=== PATIENT | female | born 1930 | race Caucasian/White ===

== ENCOUNTER 2016-06-05 17:35 | Inpatient (IN) | payer MEDICARE, BC ==
[~2016-06-05] VITALS: Ht 165.1 cm; Wt 83.3 kg
[~2016-06-05 17:35] MED LIST: LIDOCAINE 2% SYR 5 ML IV ONE; PROPOFOL 50ML PER ML IV ONE
[2016-06-05] MEDS ORDERED: ONDANSETRON 4 MG VIAL IV PRN (18:15)
[2016-06-05] MEDS ORDERED: ALU/MAG/SIM 30 ML UDC PO PRN (18:15)
[2016-06-05] MEDS ORDERED: MAG HYDROX 30 ML UDC PO PRN (18:15)
[2016-06-05] MEDS ORDERED: DEXTROSE 50% SYRINGE 50 ML IV PRN (18:20)
[2016-06-05] MEDS ORDERED: GLUCAGON 1 MG VIAL IM PRN (18:20)
[2016-06-05 18:28] VITALS: BP_SYST 134; BP_SYST 140; RESP 24; TEMP 99.3; Ht 165.1 cm; Wt 83.3 kg
[2016-06-05 19:17] VITALS: BP_SYST 146; RESP 20; TEMP 98.3
[2016-06-05] MEDS: LISINOPRIL 2.5 MG TAB PO SCH (19:25)
[2016-06-05] MEDS: CLOPIDOGREL 75 MG TAB PO SCH (19:25)
[2016-06-05] MEDS: Furosemide 40 MG TAB PO SCH (19:25)
[2016-06-05] MEDS: glipiZIDE 10 MG TAB PO SCH (19:26)
[2016-06-05] MEDS: METOPROLOL XL 50 MG TAB PO SCH (19:26)
[2016-06-05] MEDS: METHYLPRED SOD SUCC 40 MG VIAL IV SCH (19:27)
[2016-06-05] MEDS: CEFTRIAXONE 1 GM in SODIUM CHLORIDE 0.9% 50 ML IV SCH (19:57)
[2016-06-05] MEDS: AZITHROMYCIN 500 MG in SODIUM CHLORIDE 0.9% 250 ML IV SCH (19:58)
[2016-06-05] MEDS: LEVEMIR INSULIN SUBQ SCH (20:08)
[2016-06-05] MEDS: CARBAMIDE PEROXIDE 6.5% EAR EACH SCH (21:19)
[2016-06-05] MEDS: GABAPENTIN 300 MG CAP PO SCH (21:19)
[2016-06-05] MEDS: LORAZEPAM 0.5 MG TAB PO PRN (22:07)
[2016-06-05] MEDS: NEB-XOPENEX 0.63 MG/3 ML INH SCH (22:25)
[2016-06-05] MEDS: NEB-BROVANA 15 MCG/2 ML INH SCH (22:25)
[2016-06-05] MEDS: NEB-BUDESONIDE 0.5 MG INH SCH (22:25)
[2016-06-05 22:30] VITALS: RESP 18
[2016-06-05 22:51] VITALS: BP_SYST 149; RESP 22; TEMP 99.7
[2016-06-06] MEDS: NEB-XOPENEX 0.63 MG/3 ML INH SCH ×5 (00:30→23:35)
[2016-06-06] MEDS: NEB-BROVANA 15 MCG/2 ML INH SCH ×2 (05:38→19:00)
[2016-06-06] MEDS: NEB-BUDESONIDE 0.5 MG INH SCH ×2 (05:38→19:33)
[2016-06-06] MEDS: PANTOPRAZOLE 40 MG TAB PO SCH (06:05)
[2016-06-06 07:10] VITALS: BP_SYST 115; RESP 20; TEMP 98.2
[2016-06-06] MEDS: METHYLPRED SOD SUCC 40 MG VIAL IV SCH ×2 (08:12→20:35)
[2016-06-06] MEDS: LEVEMIR INSULIN SUBQ SCH ×2 (08:31→21:51)
[2016-06-06] MEDS: GABAPENTIN 300 MG CAP PO SCH ×3 (08:32→21:18)
[2016-06-06] MEDS: glipiZIDE 10 MG TAB PO SCH (08:32)
[2016-06-06] MEDS: LISINOPRIL 2.5 MG TAB PO SCH (08:32)
[2016-06-06] MEDS: CLOPIDOGREL 75 MG TAB PO SCH (08:32)
[2016-06-06] MEDS: METOPROLOL XL 50 MG TAB PO SCH (08:32)
[2016-06-06] MEDS: Furosemide 40 MG TAB PO SCH (08:32)
[2016-06-06] MEDS: CARBAMIDE PEROXIDE 6.5% EAR EACH SCH ×2 (08:33→21:31)
[2016-06-06] MEDS: CEFTRIAXONE 1 GM in SODIUM CHLORIDE 0.9% 50 ML IV SCH (10:50)
[2016-06-06 11:07] VITALS: BP_SYST 113; RESP 20; TEMP 97.9
[2016-06-06] MEDS: AZITHROMYCIN 500 MG in SODIUM CHLORIDE 0.9% 250 ML IV SCH (11:37)
[2016-06-06] MEDS: ACETAMINOPHEN 325 MG TAB PO PRN ×2 (12:06→21:22)
[2016-06-06] MEDS: GUAIFEN/DM 10 ML UDC PO PRN ×2 (12:28→23:10)
[2016-06-06] MEDS: IRON SUCROSE COMPLEX 400 MG in SODIUM CHLORIDE 0.9% 250 ML IV SCH (13:32)
[2016-06-06 15:14] VITALS: BP_SYST 125; RESP 20; TEMP 98.4
[2016-06-06 19:34] VITALS: BP_SYST 160; RESP 16; TEMP 98.1
[2016-06-06] MEDS: LORAZEPAM 0.5 MG TAB PO PRN (21:50)
[2016-06-06] MEDS ORDERED: MISSING DOSE XX ONE (22:30)
[2016-06-07] VITALS (7 sets, daily range): BP systolic 118–179; RESP 16–20; TEMP 97.6–98.2
[2016-06-07] MEDS: GUAIFEN/DM 10 ML UDC PO PRN (05:34)
[2016-06-07] MEDS: PANTOPRAZOLE 40 MG TAB PO SCH (05:34)
[2016-06-07] MEDS: NEB-XOPENEX 0.63 MG/3 ML INH SCH ×4 (06:46→23:41)
[2016-06-07] MEDS: NEB-BROVANA 15 MCG/2 ML INH SCH ×2 (06:46→18:57)
[2016-06-07] MEDS: NEB-BUDESONIDE 0.5 MG INH SCH (06:50)
[2016-06-07] MEDS: METHYLPRED SOD SUCC 40 MG VIAL IV SCH ×2 (07:35→20:57)
[2016-06-07] MEDS: ACETAMINOPHEN 325 MG TAB PO PRN (07:37)
[2016-06-07] MEDS: CEFTRIAXONE 1 GM in SODIUM CHLORIDE 0.9% 50 ML IV SCH (08:06)
[2016-06-07] MEDS: LEVEMIR INSULIN SUBQ SCH ×2 (08:08→21:29)
[2016-06-07] MEDS: CARBAMIDE PEROXIDE 6.5% EAR EACH SCH ×2 (08:08→20:57)
[2016-06-07] MEDS: LISINOPRIL 2.5 MG TAB PO SCH (08:09)
[2016-06-07] MEDS: GABAPENTIN 300 MG CAP PO SCH ×3 (08:09→21:28)
[2016-06-07] MEDS: glipiZIDE 10 MG TAB PO SCH (08:09)
[2016-06-07] MEDS: Furosemide 40 MG TAB PO SCH (08:10)
[2016-06-07] MEDS: METOPROLOL XL 50 MG TAB PO SCH (08:10)
[2016-06-07] MEDS: CLOPIDOGREL 75 MG TAB PO SCH (08:10)
[2016-06-07] MEDS: AZITHROMYCIN 500 MG in SODIUM CHLORIDE 0.9% 250 ML IV SCH (08:41)
[2016-06-07] MEDS: IRON SUCROSE COMPLEX 400 MG in SODIUM CHLORIDE 0.9% 250 ML IV SCH (09:56)
[2016-06-07] MEDS: PSEUDOEPHEDRINE 30 MG PO SCH ×3 (14:42→21:00)
[2016-06-07] MEDS: OLOPATADINE 0.1% OP SOLN EYE EACH SCH ×2 (15:47→21:28)
[2016-06-07] MEDS: DIPHENHYDRAMINE 25 MG CAP PO SCH (21:28)
[2016-06-08 03:58] VITALS: BP_SYST 144; RESP 20; TEMP 98
[2016-06-08] MEDS: PANTOPRAZOLE 40 MG TAB PO SCH (07:01)
[2016-06-08] MEDS: NEB-XOPENEX 0.63 MG/3 ML INH SCH ×3 (07:04→19:47)
[2016-06-08] MEDS: NEB-BUDESONIDE 0.5 MG INH SCH ×3 (07:04→19:50)
[2016-06-08] MEDS: NEB-BROVANA 15 MCG/2 ML INH SCH ×2 (07:04→19:47)
[2016-06-08 07:23] VITALS: BP_SYST 172; RESP 20; TEMP 97.5
[2016-06-08] MEDS: CARBAMIDE PEROXIDE 6.5% EAR EACH SCH ×2 (09:04→20:43)
[2016-06-08] MEDS: METHYLPRED SOD SUCC 40 MG VIAL IV SCH ×2 (09:04→20:42)
[2016-06-08] MEDS: PSEUDOEPHEDRINE 30 MG PO SCH ×4 (09:05→20:31)
[2016-06-08] MEDS: GABAPENTIN 300 MG CAP PO SCH ×3 (09:05→20:43)
[2016-06-08] MEDS: LEVEMIR INSULIN SUBQ SCH ×2 (09:05→21:10)
[2016-06-08] MEDS: Furosemide 40 MG TAB PO SCH (09:05)
[2016-06-08] MEDS: OLOPATADINE 0.1% OP SOLN EYE EACH SCH ×2 (09:05→20:43)
[2016-06-08] MEDS: CLOPIDOGREL 75 MG TAB PO SCH (09:05)
[2016-06-08] MEDS: METOPROLOL XL 50 MG TAB PO SCH (09:06)
[2016-06-08] MEDS: glipiZIDE 10 MG TAB PO SCH (09:06)
[2016-06-08] MEDS: LISINOPRIL 2.5 MG TAB PO SCH (09:06)
[2016-06-08] MEDS: ACETAMINOPHEN 325 MG TAB PO PRN (09:07)
[2016-06-08] MEDS: CEFTRIAXONE 1 GM in SODIUM CHLORIDE 0.9% 50 ML IV SCH (09:11)
[2016-06-08] MEDS: AZITHROMYCIN 500 MG in SODIUM CHLORIDE 0.9% 250 ML IV SCH (11:00)
[2016-06-08 11:25] VITALS: BP_SYST 144; RESP 20; TEMP 98
[2016-06-08] MEDS: IRON SUCROSE COMPLEX 400 MG in SODIUM CHLORIDE 0.9% 250 ML IV SCH (12:16)
[2016-06-08] MEDS: THEOPHYLLINE ER 300 MG TAB PO SCH (15:28)
[2016-06-08 16:28] VITALS: BP_SYST 138; RESP 18; TEMP 98.5
[2016-06-08 19:20] VITALS: BP_SYST 139; RESP 20; TEMP 98.1
[2016-06-08] MEDS: DIPHENHYDRAMINE 25 MG CAP PO SCH (20:43)
[2016-06-08] MEDS: LORAZEPAM 0.5 MG TAB PO PRN (21:09)
[2016-06-08 22:54] VITALS: BP_SYST 158; RESP 18; TEMP 98.1
[2016-06-09] MEDS: NEB-XOPENEX 0.63 MG/3 ML INH SCH ×4 (00:29→19:42)
[2016-06-09] MEDS: ACETAMINOPHEN 325 MG TAB PO PRN ×2 (06:40→12:41)
[2016-06-09] MEDS: PANTOPRAZOLE 40 MG TAB PO SCH (06:41)
[2016-06-09 07:15] VITALS: BP_SYST 155; RESP 20; TEMP 98.1
[2016-06-09] MEDS: NEB-BROVANA 15 MCG/2 ML INH SCH ×2 (07:19→19:43)
[2016-06-09] MEDS: NEB-BUDESONIDE 0.5 MG INH SCH (07:19)
[2016-06-09] MEDS: METOPROLOL XL 50 MG TAB PO SCH (08:29)
[2016-06-09] MEDS: Furosemide 40 MG TAB PO SCH (08:29)
[2016-06-09] MEDS: CEFTRIAXONE 1 GM in SODIUM CHLORIDE 0.9% 50 ML IV SCH (08:29)
[2016-06-09] MEDS: THEOPHYLLINE ER 300 MG TAB PO SCH (08:29)
[2016-06-09] MEDS: CLOPIDOGREL 75 MG TAB PO SCH (08:29)
[2016-06-09] MEDS: PSEUDOEPHEDRINE 30 MG PO SCH ×4 (08:29→21:00)
[2016-06-09] MEDS: glipiZIDE 10 MG TAB PO SCH (08:30)
[2016-06-09] MEDS: OLOPATADINE 0.1% OP SOLN EYE EACH SCH ×2 (08:30→21:04)
[2016-06-09] MEDS: METHYLPRED SOD SUCC 40 MG VIAL IV SCH ×2 (08:30→20:59)
[2016-06-09] MEDS: GABAPENTIN 300 MG CAP PO SCH ×3 (08:30→21:05)
[2016-06-09] MEDS: LISINOPRIL 2.5 MG TAB PO SCH (08:30)
[2016-06-09] MEDS: CARBAMIDE PEROXIDE 6.5% EAR EACH SCH ×2 (08:30→21:00)
[2016-06-09] MEDS: LEVEMIR INSULIN SUBQ SCH ×2 (08:52→21:47)
[2016-06-09 11:28] VITALS: BP_SYST 151; RESP 20; TEMP 98.6
[2016-06-09 15:07] VITALS: BP_SYST 153; RESP 20; TEMP 98.1
[2016-06-09] MEDS: AZITHROMYCIN 250 MG in SODIUM CHLORIDE 0.9% 250 ML IV SCH (18:13)
[2016-06-09 20:54] VITALS: BP_SYST 173; RESP 18; TEMP 98.5
[2016-06-09] MEDS: LORAZEPAM 0.5 MG TAB PO PRN (21:01)
[2016-06-09] MEDS: DIPHENHYDRAMINE 25 MG CAP PO SCH (21:04)
[2016-06-09] MEDS: ZOLPIDEM 5 MG TAB PO PRN (21:47)
[2016-06-09 22:43] VITALS: BP_SYST 184; RESP 18; TEMP 97.9
[2016-06-10] MEDS: NEB-XOPENEX 0.63 MG/3 ML INH SCH ×5 (00:14→22:34)
[2016-06-10] MEDS: PANTOPRAZOLE 40 MG TAB PO SCH (06:08)
[2016-06-10 06:18] VITALS: BP_SYST 150; RESP 18; TEMP 97.7
[2016-06-10] MEDS ORDERED: SALINE FLUSH 10 ML FLUSH PRN (06:25)
[2016-06-10 07:21] VITALS: BP_SYST 149; RESP 20; TEMP 98.2
[2016-06-10] MEDS: NEB-BUDESONIDE 0.5 MG INH SCH (07:28)
[2016-06-10] MEDS: NEB-BROVANA 15 MCG/2 ML INH SCH ×2 (07:28→18:30)
[2016-06-10] MEDS: METHYLPRED SOD SUCC 40 MG VIAL IV SCH ×2 (08:57→21:32)
[2016-06-10] MEDS: SALINE FLUSH 10 ML FLUSH SCH ×2 (08:57→21:32)
[2016-06-10] MEDS: LISINOPRIL 2.5 MG TAB PO SCH (08:58)
[2016-06-10] MEDS: AZITHROMYCIN 250 MG in SODIUM CHLORIDE 0.9% 250 ML IV SCH (08:58)
[2016-06-10] MEDS: METOPROLOL XL 50 MG TAB PO SCH (08:58)
[2016-06-10] MEDS: CARBAMIDE PEROXIDE 6.5% EAR EACH SCH ×2 (08:58→21:00)
[2016-06-10] MEDS: OLOPATADINE 0.1% OP SOLN EYE EACH SCH ×2 (08:58→19:44)
[2016-06-10] MEDS: PSEUDOEPHEDRINE 30 MG PO SCH ×4 (08:59→21:00)
[2016-06-10] MEDS: CLOPIDOGREL 75 MG TAB PO SCH (08:59)
[2016-06-10] MEDS: THEOPHYLLINE ER 300 MG TAB PO SCH (08:59)
[2016-06-10] MEDS: glipiZIDE 10 MG TAB PO SCH (09:00)
[2016-06-10] MEDS: GABAPENTIN 300 MG CAP PO SCH ×3 (09:01→21:33)
[2016-06-10] MEDS: Furosemide 40 MG TAB PO SCH (09:01)
[2016-06-10] MEDS: LEVEMIR INSULIN SUBQ SCH ×2 (09:01→22:15)
[2016-06-10] MEDS: ACETAMINOPHEN 325 MG TAB PO PRN (11:04)
[2016-06-10 11:27] VITALS: BP_SYST 117; RESP 20; TEMP 98.3
[2016-06-10 15:14] VITALS: BP_SYST 130; RESP 20; TEMP 98.4
[2016-06-10 19:08] VITALS: BP_SYST 115; RESP 18; TEMP 98.4
[2016-06-10] MEDS: LORAZEPAM 0.5 MG TAB PO PRN (19:43)
[2016-06-10] MEDS: DIPHENHYDRAMINE 25 MG CAP PO SCH (21:32)
[2016-06-10] MEDS: ZOLPIDEM 5 MG TAB PO PRN (21:32)
[2016-06-10 22:34] VITALS: BP_SYST 138; RESP 18; TEMP 98.6
[2016-06-11] MEDS: PANTOPRAZOLE 40 MG TAB PO SCH (06:30)
[2016-06-11] MEDS: SODIUM CHLORIDE 0.9% FLUSH BAG 500 ML IV SCH (06:30)
[2016-06-11 07:16] VITALS: BP_SYST 145; RESP 18; TEMP 98.1
[2016-06-11] MEDS: NEB-BROVANA 15 MCG/2 ML INH SCH ×2 (07:27→18:36)
[2016-06-11] MEDS: NEB-XOPENEX 0.63 MG/3 ML INH SCH ×5 (07:27→23:52)
[2016-06-11] MEDS: NEB-BUDESONIDE 0.5 MG INH SCH ×2 (07:27→18:36)
[2016-06-11] MEDS: SALINE FLUSH 10 ML FLUSH SCH ×2 (08:51→20:33)
[2016-06-11] MEDS: METHYLPRED SOD SUCC 40 MG VIAL IV SCH ×2 (08:51→20:33)
[2016-06-11] MEDS: LEVEMIR INSULIN SUBQ SCH ×2 (08:52→20:35)
[2016-06-11] MEDS: Furosemide 40 MG TAB PO SCH (08:52)
[2016-06-11] MEDS: PSEUDOEPHEDRINE 30 MG PO SCH ×4 (08:53→20:34)
[2016-06-11] MEDS: THEOPHYLLINE ER 300 MG TAB PO SCH (08:53)
[2016-06-11] MEDS: LISINOPRIL 2.5 MG TAB PO SCH (08:53)
[2016-06-11] MEDS: METOPROLOL XL 50 MG TAB PO SCH (08:53)
[2016-06-11] MEDS: GABAPENTIN 300 MG CAP PO SCH ×3 (08:53→20:34)
[2016-06-11] MEDS: OLOPATADINE 0.1% OP SOLN EYE EACH SCH ×2 (08:54→20:34)
[2016-06-11] MEDS: CARBAMIDE PEROXIDE 6.5% EAR EACH SCH ×2 (08:55→20:33)
[2016-06-11] MEDS: AZITHROMYCIN 250 MG in SODIUM CHLORIDE 0.9% 250 ML IV SCH (09:42)
[2016-06-11] MEDS: glipiZIDE 10 MG TAB PO SCH (10:48)
[2016-06-11 12:10] VITALS: BP_SYST 149; RESP 18; TEMP 97.7
[2016-06-11] MEDS: ACETAMINOPHEN 325 MG TAB PO PRN (12:24)
[2016-06-11 15:28] VITALS: BP_SYST 116; RESP 18; TEMP 98.3
[2016-06-11 19:02] VITALS: BP_SYST 139; RESP 20; TEMP 98.1
[2016-06-11] MEDS: DIPHENHYDRAMINE 25 MG CAP PO SCH (20:34)
[2016-06-11] MEDS: LORAZEPAM 0.5 MG TAB PO PRN (21:40)
[2016-06-11 23:16] VITALS: BP_SYST 138; RESP 20; TEMP 98.1
[2016-06-12] MEDS: ACETAMINOPHEN 325 MG TAB PO PRN ×3 (00:01→23:35)
[2016-06-12 04:29] VITALS: BP_SYST 166; RESP 18; TEMP 97.9
[2016-06-12] MEDS: PANTOPRAZOLE 40 MG TAB PO SCH (06:30)
[2016-06-12] MEDS: SODIUM CHLORIDE 0.9% FLUSH BAG 500 ML IV SCH (06:30)
[2016-06-12 07:20] VITALS: BP_SYST 135; RESP 18; TEMP 97.6
[2016-06-12] MEDS: NEB-BROVANA 15 MCG/2 ML INH SCH ×2 (07:29→17:12)
[2016-06-12] MEDS: NEB-XOPENEX 0.63 MG/3 ML INH SCH ×4 (07:29→23:50)
[2016-06-12] MEDS: NEB-BUDESONIDE 0.5 MG INH SCH (07:30)
[2016-06-12] MEDS ORDERED: MISSING DOSE XX ONE (09:45)
[2016-06-12] MEDS: CARBAMIDE PEROXIDE 6.5% EAR EACH SCH ×2 (10:31→20:03)
[2016-06-12] MEDS: SALINE FLUSH 10 ML FLUSH SCH ×2 (10:31→20:03)
[2016-06-12] MEDS: METHYLPRED SOD SUCC 40 MG VIAL IV SCH ×3 (10:31→20:03)
[2016-06-12] MEDS: OLOPATADINE 0.1% OP SOLN EYE EACH SCH ×2 (10:32→20:03)
[2016-06-12] MEDS: GUAIFEN/DM 10 ML UDC PO PRN (10:32)
[2016-06-12] MEDS: AZITHROMYCIN 250 MG in SODIUM CHLORIDE 0.9% 250 ML IV SCH (10:32)
[2016-06-12] MEDS: GABAPENTIN 300 MG CAP PO SCH ×3 (10:33→20:03)
[2016-06-12] MEDS: PSEUDOEPHEDRINE 30 MG PO SCH ×4 (10:33→20:03)
[2016-06-12] MEDS: LEVEMIR INSULIN SUBQ SCH ×2 (10:33→20:04)
[2016-06-12] MEDS: THEOPHYLLINE ER 300 MG TAB PO SCH (10:34)
[2016-06-12] MEDS: glipiZIDE 10 MG TAB PO SCH (10:34)
[2016-06-12] MEDS: LISINOPRIL 2.5 MG TAB PO SCH (10:34)
[2016-06-12] MEDS: Furosemide 40 MG TAB PO SCH (10:34)
[2016-06-12] MEDS: METOPROLOL XL 50 MG TAB PO SCH (10:34)
[2016-06-12 11:25] VITALS: BP_SYST 143; RESP 18; TEMP 98.1
[2016-06-12 16:02] VITALS: BP_SYST 148; RESP 16; TEMP 97.8
[2016-06-12 19:51] VITALS: BP_SYST 131; RESP 18; TEMP 98.1
[2016-06-12] MEDS: DIPHENHYDRAMINE 25 MG CAP PO SCH (20:03)
[2016-06-12] MEDS: LORAZEPAM 0.5 MG TAB PO PRN (23:34)
[2016-06-12 23:36] VITALS: BP_SYST 105; RESP 20; TEMP 97.8
[2016-06-13 03:13] VITALS: BP_SYST 121; RESP 18; TEMP 97.5
[2016-06-13] MEDS: SODIUM CHLORIDE 0.9% FLUSH BAG 500 ML IV SCH (05:58)
[2016-06-13] MEDS: PANTOPRAZOLE 40 MG TAB PO SCH (06:06)
[2016-06-13] MEDS: NEB-BROVANA 15 MCG/2 ML INH SCH ×2 (06:31→18:47)
[2016-06-13] MEDS: NEB-XOPENEX 0.63 MG/3 ML INH SCH ×3 (06:31→18:46)
[2016-06-13] MEDS: NEB-BUDESONIDE 0.5 MG INH SCH (06:31)
[2016-06-13 07:52] VITALS: BP_SYST 137; RESP 16; TEMP 97.6
[2016-06-13] MEDS: OLOPATADINE 0.1% OP SOLN EYE EACH SCH ×2 (09:40→21:25)
[2016-06-13] MEDS: GUAIFEN/DM 10 ML UDC PO PRN (09:41)
[2016-06-13] MEDS: METHYLPRED SOD SUCC 40 MG VIAL IV SCH ×2 (09:41→21:25)
[2016-06-13] MEDS: CARBAMIDE PEROXIDE 6.5% EAR EACH SCH ×2 (09:41→21:26)
[2016-06-13] MEDS: SALINE FLUSH 10 ML FLUSH SCH ×2 (09:41→21:24)
[2016-06-13] MEDS: THEOPHYLLINE ER 300 MG TAB PO SCH (09:42)
[2016-06-13] MEDS: PSEUDOEPHEDRINE 30 MG PO SCH ×4 (09:42→21:26)
[2016-06-13] MEDS: glipiZIDE 10 MG TAB PO SCH (09:42)
[2016-06-13] MEDS: METOPROLOL XL 50 MG TAB PO SCH (09:42)
[2016-06-13] MEDS: Furosemide 40 MG TAB PO SCH (09:42)
[2016-06-13] MEDS: GABAPENTIN 300 MG CAP PO SCH ×3 (09:42→21:26)
[2016-06-13] MEDS: LISINOPRIL 2.5 MG TAB PO SCH (09:42)
[2016-06-13] MEDS: TRAMADOL 50 MG TAB PO PRN (09:55)
[2016-06-13] MEDS: LEVEMIR INSULIN SUBQ SCH ×2 (09:56→21:00)
[2016-06-13 11:36] VITALS: BP_SYST 134; RESP 16; TEMP 98
[2016-06-13 15:06] VITALS: BP_SYST 136; TEMP 97.9
[2016-06-13 19:18] VITALS: BP_SYST 138; RESP 18; TEMP 98.4
[2016-06-13] MEDS: DIPHENHYDRAMINE 25 MG CAP PO SCH (21:26)
[2016-06-13] MEDS: LORAZEPAM 0.5 MG TAB PO PRN (22:08)
[2016-06-13 23:11] VITALS: BP_SYST 129; RESP 20; TEMP 98.1
[2016-06-14] MEDS: NEB-XOPENEX 0.63 MG/3 ML INH SCH ×5 (00:08→23:31)
[2016-06-14] MEDS: NEB-BUDESONIDE 0.5 MG INH SCH (05:23)
[2016-06-14] MEDS: NEB-BROVANA 15 MCG/2 ML INH SCH ×2 (05:23→19:00)
[2016-06-14] MEDS: SODIUM CHLORIDE 0.9% FLUSH BAG 500 ML IV SCH (06:00)
[2016-06-14] MEDS: PANTOPRAZOLE 40 MG TAB PO SCH (07:42)
[2016-06-14 08:12] VITALS: BP_SYST 136; RESP 18; TEMP 97.7
[2016-06-14] MEDS: OLOPATADINE 0.1% OP SOLN EYE EACH SCH ×2 (08:34→21:06)
[2016-06-14] MEDS: CARBAMIDE PEROXIDE 6.5% EAR EACH SCH ×2 (08:35→21:00)
[2016-06-14] MEDS: GABAPENTIN 300 MG CAP PO SCH ×3 (08:36→21:05)
[2016-06-14] MEDS: METHYLPRED SOD SUCC 40 MG VIAL IV SCH ×2 (08:36→21:06)
[2016-06-14] MEDS: Furosemide 40 MG TAB PO SCH (08:36)
[2016-06-14] MEDS: SALINE FLUSH 10 ML FLUSH SCH ×2 (08:36→21:06)
[2016-06-14] MEDS: glipiZIDE 10 MG TAB PO SCH (08:36)
[2016-06-14] MEDS: LISINOPRIL 2.5 MG TAB PO SCH (08:36)
[2016-06-14] MEDS: THEOPHYLLINE ER 300 MG TAB PO SCH (08:37)
[2016-06-14] MEDS: PSEUDOEPHEDRINE 30 MG PO SCH ×4 (08:37→21:04)
[2016-06-14] MEDS: METOPROLOL XL 50 MG TAB PO SCH (08:37)
[2016-06-14] MEDS: LEVEMIR INSULIN SUBQ SCH ×2 (09:16→21:25)
[2016-06-14] MEDS: ACETAMINOPHEN 325 MG TAB PO PRN ×2 (12:56→21:13)
[2016-06-14 15:45] VITALS: BP_SYST 114; RESP 18; TEMP 98
[2016-06-14 19:33] VITALS: BP_SYST 141; RESP 18; TEMP 97.7
[2016-06-14] MEDS ORDERED: POLYETHYLENE GLYCOL 17 GM PACKET PO ONE (21:00)
[2016-06-14] MEDS: LORAZEPAM 0.5 MG TAB PO PRN (21:05)
[2016-06-14] MEDS: DIPHENHYDRAMINE 25 MG CAP PO SCH (21:05)
[2016-06-14] MEDS: ZOLPIDEM 5 MG TAB PO PRN (21:13)
[2016-06-14 23:41] VITALS: BP_SYST 119; RESP 18; TEMP 98.3
[2016-06-15 03:14] VITALS: BP_SYST 122; RESP 18; TEMP 98
[2016-06-15] MEDS: NEB-XOPENEX 0.63 MG/3 ML INH SCH ×4 (05:04→23:58)
[2016-06-15] MEDS: NEB-BROVANA 15 MCG/2 ML INH SCH ×2 (05:05→18:11)
[2016-06-15] MEDS: NEB-BUDESONIDE 0.5 MG INH SCH (05:06)
[2016-06-15] MEDS: PANTOPRAZOLE 40 MG TAB PO SCH (05:25)
[2016-06-15 07:37] VITALS: BP_SYST 131; RESP 18; TEMP 97.5
[2016-06-15] MEDS: THEOPHYLLINE ER 300 MG TAB PO SCH (09:00)
[2016-06-15] MEDS: Furosemide 40 MG TAB PO SCH (09:00)
[2016-06-15] MEDS: glipiZIDE 10 MG TAB PO SCH (09:00)
[2016-06-15] MEDS ORDERED: POLYETHYLENE GLYCOL 17 GM PACKET PO ONE (09:00)
[2016-06-15] MEDS: PSEUDOEPHEDRINE 30 MG PO SCH ×4 (09:00→20:54)
[2016-06-15] MEDS: METOPROLOL XL 50 MG TAB PO SCH (09:01)
[2016-06-15] MEDS: LISINOPRIL 2.5 MG TAB PO SCH (09:01)
[2016-06-15] MEDS: GABAPENTIN 300 MG CAP PO SCH ×3 (09:01→20:54)
[2016-06-15] MEDS: LEVEMIR INSULIN SUBQ SCH ×2 (09:02→20:55)
[2016-06-15] MEDS: CARBAMIDE PEROXIDE 6.5% EAR EACH SCH ×2 (09:02→20:54)
[2016-06-15] MEDS: OLOPATADINE 0.1% OP SOLN EYE EACH SCH ×2 (09:02→20:54)
[2016-06-15] MEDS: METHYLPRED SOD SUCC 40 MG VIAL IV SCH ×2 (09:02→20:54)
[2016-06-15] MEDS: SALINE FLUSH 10 ML FLUSH SCH ×2 (09:03→20:54)
[2016-06-15 10:43] VITALS: BP_SYST 138; RESP 16; TEMP 98
[2016-06-15 15:42] VITALS: BP_SYST 140; RESP 16; TEMP 97.8
[2016-06-15 20:25] VITALS: BP_SYST 178; RESP 18; TEMP 98.3
[2016-06-15] MEDS: DIPHENHYDRAMINE 25 MG CAP PO SCH (20:54)
[2016-06-15] MEDS: LORAZEPAM 0.5 MG TAB PO PRN (20:59)
[2016-06-15 23:28] VITALS: BP_SYST 135; RESP 18; TEMP 98.3
[2016-06-16] VITALS (10 sets, daily range): BP systolic 99–151; RESP 15–19; TEMP 95.6–98.7
[2016-06-16] MEDS: NEB-BUDESONIDE 0.5 MG INH SCH (05:12)
[2016-06-16] MEDS: NEB-BROVANA 15 MCG/2 ML INH SCH ×2 (05:12→17:10)
[2016-06-16] MEDS: NEB-XOPENEX 0.63 MG/3 ML INH SCH ×4 (05:12→23:36)
[2016-06-16] MEDS: PANTOPRAZOLE 40 MG TAB PO SCH (06:00)
[2016-06-16] MEDS: LEVEMIR INSULIN SUBQ SCH ×2 (08:19→21:00)
[2016-06-16] MEDS: GABAPENTIN 300 MG CAP PO SCH ×3 (09:00→21:03)
[2016-06-16] MEDS: CARBAMIDE PEROXIDE 6.5% EAR EACH SCH ×2 (09:24→21:02)
[2016-06-16] MEDS: OLOPATADINE 0.1% OP SOLN EYE EACH SCH ×2 (09:24→21:03)
[2016-06-16] MEDS: SALINE FLUSH 10 ML FLUSH SCH ×2 (09:25→21:02)
[2016-06-16] MEDS: METHYLPRED SOD SUCC 40 MG VIAL IV SCH ×2 (09:25→21:02)
[2016-06-16] MEDS: PSEUDOEPHEDRINE 30 MG PO SCH ×4 (13:00→21:03)
[2016-06-16] MEDS: Furosemide 40 MG TAB PO SCH (14:49)
[2016-06-16] MEDS: glipiZIDE 10 MG TAB PO SCH (14:49)
[2016-06-16] MEDS: METOPROLOL XL 50 MG TAB PO SCH (14:49)
[2016-06-16] MEDS: LISINOPRIL 2.5 MG TAB PO SCH (14:49)
[2016-06-16] MEDS: THEOPHYLLINE ER 300 MG TAB PO SCH (14:50)
[2016-06-16] MEDS: DIPHENHYDRAMINE 25 MG CAP PO SCH (21:00)
[2016-06-16] MEDS: LORAZEPAM 0.5 MG TAB PO PRN (21:03)
[2016-06-17] VITALS (7 sets, daily range): BP systolic 91–161; RESP 16–22; TEMP 98–99
[2016-06-17] MEDS: TRAMADOL 50 MG TAB PO PRN (03:37)
[2016-06-17] MEDS: NEB-XOPENEX 0.63 MG/3 ML INH SCH ×4 (05:15→22:56)
[2016-06-17] MEDS: NEB-BROVANA 15 MCG/2 ML INH SCH ×2 (05:15→19:00)
[2016-06-17] MEDS: NEB-BUDESONIDE 0.5 MG INH SCH (05:15)
[2016-06-17] MEDS: PANTOPRAZOLE 40 MG TAB PO SCH (06:38)
[2016-06-17] MEDS: METHYLPRED SOD SUCC 40 MG VIAL IV SCH ×2 (08:00→22:09)
[2016-06-17] MEDS: CARBAMIDE PEROXIDE 6.5% EAR EACH SCH ×3 (09:12→22:08)
[2016-06-17] MEDS: OLOPATADINE 0.1% OP SOLN EYE EACH SCH ×2 (09:12→22:05)
[2016-06-17] MEDS: glipiZIDE 10 MG TAB PO SCH (09:12)
[2016-06-17] MEDS: PSEUDOEPHEDRINE 30 MG PO SCH ×2 (09:12→13:00)
[2016-06-17] MEDS: METOPROLOL XL 50 MG TAB PO SCH (09:13)
[2016-06-17] MEDS: THEOPHYLLINE ER 300 MG TAB PO SCH (09:13)
[2016-06-17] MEDS: LISINOPRIL 2.5 MG TAB PO SCH (09:13)
[2016-06-17] MEDS: GABAPENTIN 300 MG CAP PO SCH ×3 (09:13→22:01)
[2016-06-17] MEDS: LEVEMIR INSULIN SUBQ SCH ×2 (09:14→22:29)
[2016-06-17] MEDS: Furosemide 40 MG TAB PO SCH (09:14)
[2016-06-17] MEDS: SALINE FLUSH 10 ML FLUSH SCH ×2 (09:16→22:09)
[2016-06-17] MEDS ORDERED: CLOPIDOGREL 75 MG TAB PO SCH (13:05)
[2016-06-17] MEDS: ASPIRIN EC 81 MG TAB PO SCH (15:06)
[2016-06-17] MEDS: CLOPIDOGREL 75 MG TAB PO SCH (16:55)
[2016-06-17] MEDS: SIMETHICONE 80 MG CHEW TAB PO SCH ×2 (17:23→22:01)
[2016-06-17] MEDS: DIPHENHYDRAMINE 25 MG CAP PO SCH (22:01)
[2016-06-18 04:45] VITALS: BP_SYST 114; RESP 20; TEMP 97.4
[2016-06-18] MEDS: NEB-XOPENEX 0.63 MG/3 ML INH SCH ×4 (06:30→23:32)
[2016-06-18] MEDS: NEB-BUDESONIDE 0.5 MG INH SCH (07:00)
[2016-06-18] MEDS ORDERED: MISSING DOSE XX ONE ×5 (07:00→09:30)
[2016-06-18] MEDS: NEB-BROVANA 15 MCG/2 ML INH SCH ×2 (07:00→19:24)
[2016-06-18 07:31] VITALS: BP_SYST 107; RESP 20; TEMP 97.7
[2016-06-18] MEDS: PANTOPRAZOLE 40 MG TAB PO SCH (07:32)
[2016-06-18] MEDS: ASPIRIN EC 81 MG TAB PO SCH (09:00)
[2016-06-18] MEDS: CARBAMIDE PEROXIDE 6.5% EAR EACH SCH ×2 (10:41→21:24)
[2016-06-18] MEDS: METHYLPRED SOD SUCC 40 MG VIAL IV SCH ×2 (10:41→21:23)
[2016-06-18] MEDS: SALINE FLUSH 10 ML FLUSH SCH ×2 (10:41→21:23)
[2016-06-18] MEDS: glipiZIDE 10 MG TAB PO SCH (10:42)
[2016-06-18] MEDS: OLOPATADINE 0.1% OP SOLN EYE EACH SCH ×2 (10:42→21:24)
[2016-06-18] MEDS: METOPROLOL XL 50 MG TAB PO SCH (10:42)
[2016-06-18] MEDS: Furosemide 40 MG TAB PO SCH (10:43)
[2016-06-18] MEDS: LISINOPRIL 2.5 MG TAB PO SCH (10:43)
[2016-06-18] MEDS: LEVEMIR INSULIN SUBQ SCH ×2 (10:44→22:11)
[2016-06-18] MEDS: GABAPENTIN 300 MG CAP PO SCH ×3 (10:44→21:22)
[2016-06-18] MEDS: SIMETHICONE 80 MG CHEW TAB PO SCH ×4 (10:44→21:22)
[2016-06-18] MEDS: CLOPIDOGREL 75 MG TAB PO SCH (10:46)
[2016-06-18 11:15] VITALS: BP_SYST 114; RESP 20; TEMP 97.3
[2016-06-18 15:43] VITALS: BP_SYST 120; RESP 20; TEMP 98.7
[2016-06-18 19:17] VITALS: BP_SYST 131; RESP 18; TEMP 98.1
[2016-06-18] MEDS: DIPHENHYDRAMINE 25 MG CAP PO SCH (21:22)
[2016-06-19 00:15] VITALS: BP_SYST 109; RESP 16; TEMP 97.4
[2016-06-19 03:11] VITALS: BP_SYST 122; RESP 16; TEMP 98.2
[2016-06-19] MEDS: PANTOPRAZOLE 40 MG TAB PO SCH (06:39)
[2016-06-19] MEDS: NEB-XOPENEX 0.63 MG/3 ML INH SCH ×3 (07:39→18:30)
[2016-06-19] MEDS: NEB-BUDESONIDE 0.5 MG INH SCH (07:39)
[2016-06-19] MEDS: NEB-BROVANA 15 MCG/2 ML INH SCH ×2 (07:40→19:00)
[2016-06-19 08:13] VITALS: BP_SYST 117; RESP 16; TEMP 97.6
[2016-06-19] MEDS: OLOPATADINE 0.1% OP SOLN EYE EACH SCH (08:58)
[2016-06-19] MEDS: GABAPENTIN 300 MG CAP PO SCH ×2 (08:58→15:52)
[2016-06-19] MEDS: CARBAMIDE PEROXIDE 6.5% EAR EACH SCH (08:58)
[2016-06-19] MEDS: SALINE FLUSH 10 ML FLUSH SCH (08:58)
[2016-06-19] MEDS: METHYLPRED SOD SUCC 40 MG VIAL IV SCH (08:58)
[2016-06-19] MEDS: glipiZIDE 10 MG TAB PO SCH (08:59)
[2016-06-19] MEDS: CLOPIDOGREL 75 MG TAB PO SCH (08:59)
[2016-06-19] MEDS: LISINOPRIL 2.5 MG TAB PO SCH (08:59)
[2016-06-19] MEDS: ASPIRIN EC 81 MG TAB PO SCH (08:59)
[2016-06-19] MEDS: METOPROLOL XL 50 MG TAB PO SCH (08:59)
[2016-06-19] MEDS: SIMETHICONE 80 MG CHEW TAB PO SCH ×3 (08:59→16:46)
[2016-06-19] MEDS: Furosemide 40 MG TAB PO SCH (08:59)
[2016-06-19] MEDS ORDERED: LEVEMIR INSULIN SUBQ SCH (09:00)
[2016-06-19 10:54] VITALS: BP_SYST 150; RESP 16; TEMP 97.2
[2016-06-19] MEDS: TRAMADOL 50 MG TAB PO PRN (14:05)
[2016-06-19 16:22] VITALS: BP_SYST 135; RESP 16; TEMP 97.8
[2016-06-19 17:48] VITALS: BP_SYST 135; RESP 16; TEMP 97.8
== END 2016-06-19 22:48 | DRG 190 ==
LOC: 4NT 17:35 → ENPENDDIS 17:35
PROVIDERS: ADMIT Internal Medicine Hematology & Oncology; ATTEND Internal Medicine Hematology & Oncology
PROC: 0DJ08ZZ Inspection of Upper Intestinal Tract, Via Natural or Artificial Opening Endoscopic (ICD-10-PCS; principal; 2016-06-16 12:10)
DX: J44.1 Chronic obstructive pulmonary disease with (acute) exacerbation (principal); I63.9 Cerebral infarction, unspecified; R47.01 Aphasia; K92.2 Gastrointestinal hemorrhage, unspecified; E11.9 Type 2 diabetes mellitus without complications; Z85.820 Personal history of malignant melanoma of skin; Z79.01 Long term (current) use of anticoagulants; Z79.4 Long term (current) use of insulin; H61.22 Impacted cerumen, left ear; I10 Essential (primary) hypertension; K64.8 Other hemorrhoids; K64.4 Residual hemorrhoidal skin tags; Z87.891 Personal history of nicotine dependence; R29.712 NIHSS score 12; E11.40 Type 2 diabetes mellitus with diabetic neuropathy, unspecified; D50.0 Iron deficiency anemia secondary to blood loss (chronic); E78.5 Hyperlipidemia, unspecified
CPT/HCPCS: 36600; 70450; 70480; 70486; 70551; 71020; 74176; 80048; 80053; 80198; 81001; 82274; 82803; 82947; 83036; 83540; 84466; 85025; 85610; 85730; 86738; 87071; 87088; 93306; 93880; 94640; 94799; 99223; 99232